=== PATIENT | female | born 2000 | race Two or more races ===

== ENCOUNTER 2023-12-27 15:03 | Outpatient (CLI) | payer OTHER | END 2023-12-27 15:07 | disposition home or self-care (01) | LOC: PRENATAL 15:03 | PROVIDERS: ATTEND Obstetrics & Gynecology Maternal & Fetal Medicine | DX: O44.00 Complete placenta previa NOS or without hemorrhage, unspecified trimester (principal); Z3A.29 29 weeks gestation of pregnancy ==

== ENCOUNTER 2024-02-05 12:28 | Outpatient (CLI) | payer OTHER | END 2024-02-05 12:29 | disposition home or self-care (01) | LOC: PRENATAL 12:28 | PROVIDERS: ATTEND Obstetrics & Gynecology Maternal & Fetal Medicine | DX: O26.849 Uterine size-date discrepancy, unspecified trimester (principal); O36.8199 Decreased fetal movements, unspecified trimester, other fetus; Z3A.35 35 weeks gestation of pregnancy ==